=== PATIENT | male | born 1985 | race Caucasian/White ===

== ENCOUNTER → 2017-03-13 | Outpatient (CLI) | payer OTHER | END | disposition home or self-care (01) | LOC: ORTHO 02:30 | DX: M25.512 Pain in left shoulder (principal) ==

== ENCOUNTER → 2017-03-31 | Outpatient (CLI) | payer OTHER ==
[~2017-03-31] MED LIST: ATORVASTATIN CA10 M1 PO; CITALOPRAM HYDR20 MG PO; NAPROXEN500 MG PO; TIZANIDINE HCL4 MG PO
[2017-03-31 11:51] LABS: BASO % 0.3 % (0.0-1.0); EOS # 0.1 10*3/uL (0.0-0.4); EOS % 1.1 % (1.0-4.0); HEMATOCRIT 44.5 % (42.0-52.0); HEMOGLOBIN 14.9 g/dl (14.0-18.0); IG # 0.1 10*3/uL (0.0-0.1); LYMPH # 1.6 10*3/uL (1.3-4.4); LYMPH % 22.5 % (27.0-41.0); MEAN CELL VOLUME 85.2 fl (80.0-94.0); MEAN CORPUSCULAR HGB 28.5 pg (27.0-31.0); MEAN CORPUSCULAR HGB CONC 33.5 g/dl (33.0-37.0); MEAN PLATELET VOLUME 10.3 fl (9.6-12.3); MONO # 0.4 10*3/uL (0.1-1.0); MONO % 5.5 % (3.0-9.0); NEUT # 4.9 10*3/uL (2.3-7.9); NEUT % 69.9 % (47.0-73.0); PLATELET COUNT AUTOMATED 275 10*3/uL (130-400); RED BLOOD COUNT 5.22 10*6/uL (4.50-5.90); RED CELL DISTRI WIDTH 13.8 % (0-14.5); WHITE BLOOD COUNT 7.1 10*3/uL (4.8-10.8)
[2017-03-31 12:17] LABS: ALBUMIN 4.1 gm/dl (3.1-4.5); ALKALINE PHOSPHATASE 83 U/L (45-117); BILIRUBIN, TOTAL 0.3 mg/dl (0.2-1.0); BUN 14 mg/dl (7-24); CARBON DIOXIDE 28 mmol/L (21-32); CHLORIDE 103 mmol/L (98-107); EST GLOM FILT AFRICAN AMERICAN > 60 ml/min; GLUCOSE 95 mg/dL (65-99); POTASSIUM 4.2 mmol/L (3.5-5.1); SGOT/AST 26 IU/L (3-35); SGPT/ALT 34 U/L (12-78); SODIUM 135 mmol/L (136-145); TOTAL PROTEIN 7.8 gm/dL (6.4-8.2)
== END | disposition home or self-care (01) ==
LOC: LAB 09:43
PROVIDERS: Orthopaedic Surgery
DX: Z01.818 Encounter for other preprocedural examination (principal); M75.102 Unspecified rotator cuff tear or rupture of left shoulder, not specified as traumatic; F17.200 Nicotine dependence, unspecified, uncomplicated; M25.812 Other specified joint disorders, left shoulder

== ENCOUNTER → 2017-04-07 | Day surgery (SDC) | payer OTHER ==
[2017-03-31 12:07] VITALS: BP 133/76
[2017-04-06 10:25] LABS: BILIRUBIN NEGATIVE (NEGATIVE); BLOOD 1+ (NEGATIVE); CLARITY CLEAR (CLEAR); COLOR YELLOW (YELLOW); GLUCOSE NEGATIVE (NEGATIVE); KETONE NEGATIVE (NEGATIVE); LEUKO ESTERASE NEGATIVE (NEGATIVE); NITRITE NEGATIVE (NEGATIVE); SPECIFIC GRAVITY <= 1.005 (1.005-1.030); UROBILINOGEN 0.2 E.U./dl (0.2-1.0)
[2017-04-06 10:33] LABS: RBC 0-2 rbc/hpf (0-2); WBC 0-2 wbc/hpf (0-5)
[2017-04-07] VITALS (10 sets, daily range): BP systolic 122–142; BP diastolic 65–88
[~2017-04-07] VITALS: Ht 165.1 cm; Wt 85.7 kg
[~2017-04-07] MED LIST changes: +Percocet 325 MG1 TAB PO; +ZOFRAN4 MG PO
--- NOTE | ~2017-04-07 | O ---
[place], [place] OPERATIVE NOTE NAME: JANNA DONIS OWATONNA CLINICT #: [id number] UNIT #: [id number] ROOM: DOCTOR: VELIA WELSH DO BIRTHDATE: [birth year] DOS: 04/07/2017 PREOPERATIVE DIAGNOSES: Left shoulder possible labral tear, partial rotator cuff tear and acromioclavicular joint arthritis. POSTOPERATIVE DIAGNOSES: Left shoulder impingement subacromial, partial rotator cuff tear, acromioclavicular arthritis, degenerative changes at the labrum. SURGEON: Velia Welsh DO. BOX TOE CEMENTER: Tona. ANESTHESIA: CHARLEY Szymanski. INDICATIONS: The patient is a 31-year-old male with a history of pain and disability about the left shoulder, unrelieved with conservative care. The risks and benefits of the procedure were explained to the patient preoperatively. Preoperative labs and x-rays were obtained. Preoperative MRI and physical exam indicated a partial rotator cuff tear, acromioclavicular joint arthritis and a possible labral tear. DESCRIPTION OF PROCEDURE: The left shoulder was marked in the holding room. The patient was brought to the operative suite. A general anesthetic with endotracheal intubation was performed. The patient was placed in a modified beach chair position in the shoulder table. The patient received Ancef 2 grams IV piggyback. The timeout was performed. The left upper extremity was prepped and draped in usual orthopedic manner. The landmarks were identified and marked on the left shoulder. The posterior-lateral portal was created 1 cm distal and lateral to the acromion. The area was injected with Marcaine 0.5% with epinephrine. An incision was made with a #11 blade. Blunt trocar and cannula were used to enter the glenohumeral joint. The inflow and the outflow were established through the cannula. The arthroscopy camera was placed through the cannula as well. The ____ portal was created using a spinal needle, followed by a switching stick after the area been injected with Marcaine 0.5% with epinephrine and an incision had been made. The cannula was placed over the switching stick and advanced. The shoulder was evaluated and there was noted to be minimal degenerative changes about the labrum. This was probed and found to be intact in all areas. There were minimal degenerative changes of the anterior labrum and this was gently debrided using a full radius resector. This was followed by an ArthroCare wand. The rotator cuff was noted to have minimal degenerative changes at the level of the supraspinatus and these were gently debrided using the ArthroCare wand. When no further repairable or debridable pathology was present within the glenohumeral joint and the areas of visualization had been anterior and posterior, the arthroscopy camera was placed in the subacromial region. The camera was at the posterior-lateral portal and a direct lateral portal was created using an injection of Marcaine 0.5% with epinephrine and a #11 blade. [place], [place] OPERATIVE NOTE NAME: JANNA DONIS UNIT #: [id number] ROOM: DOCTOR: VELIA WELSH DO BIRTHDATE: [birth year] The blunt trocar was used to enter this area and to sweep away the subacromial bursa. The lateral portal was then entered using a full radius resector and ArthroCare wand to shrink down the bursa and control any bleeding. The anterior acromion was marked with a spinal needle and the bur was placed through the lateral portal to remove the anterior portion of the acromion. The arthroscopy wand was then used to remove any remaining coracoacromial ligament and to control any bleeding. The acromioclavicular joint was identified and an initial debridement was performed through the arthroscopic method. The Sandro was felt to be in adequate from the arthroscopic perspective and decision was made to open the area of the acromioclavicular joint. Skin was injected with Marcaine 0.5% with epinephrine. A longitudinal incision was made. The subcutaneous tissue was spread down to the level of the acromioclavicular capsule. The acromioclavicular capsule was debrided and the distal Clavicular was cleared of capsular material. The small ____ were used to expose the distal clavicle and an oscillating saw was used to remove the distal 1 cm of distal clavicle. The area was evaluated digitally and a handheld rasp was used to smooth the undersurface of the acromion as well as the distal clavicle. The area was irrigated with normal saline. The shoulder was expressed of any excess fluid. The distal clavicle area capsule was closed with 0 Vicryl followed by 2-0 Vicryl and skin shayla. The portals were closed with skin shayla. Xeroform, 4 x 4s and OpSite dressing were used to cover the wound. An ABD pad was placed in the axilla and the left upper extremity was placed in a sling. The patient was returned to a supine position. The anesthetic was reversed. The patient was extubated and taken to the recovery room in satisfactory condition. Sponge and needle count correct. ESTIMATED BLOOD LOSS: 10 mL. SPECIMENS: None. DRAINS: None. PACKING: None. COMPLICATIONS: None. FINDINGS: Left shoulder subacromial impingement, partial rotator cuff tear, labral degeneration, acromioclavicular joint arthritis. [place], [place] OPERATIVE NOTE NAME: DILANPatricJANNA UNIT #: [id number] ROOM: DOCTOR: VELIA WELSH DO BIRTHDATE: [birth year] VELIA WELSH DO CM:OPRECORD:OPERATIVE NOTE [id number] VELIA WELSH DO 04/22/17 1557 interface
== END | disposition home or self-care (01) ==
LOC: SDC 03-30 10:15
PROVIDERS: Orthopaedic Surgery
DX: M75.122 Complete rotator cuff tear or rupture of left shoulder, not specified as traumatic (principal); M75.42 Impingement syndrome of left shoulder; M19.012 Primary osteoarthritis, left shoulder; F31.9 Bipolar disorder, unspecified; E78.5 Hyperlipidemia, unspecified; Z98.890 Other specified postprocedural states; F17.210 Nicotine dependence, cigarettes, uncomplicated; Z79.899 Other long term (current) drug therapy